=== PATIENT | female | born 1970 | race Caucasian/White ===

== ENCOUNTER 2017-07-05 07:17 | Emergency (ER) | payer BC ==
[2017-07-05 07:23] VITALS: BP 159/85; PULSE 77; RESP 16; TEMP 97.8
[2017-07-05] MEDS ORDERED: methylPREDNISolone SOD SUCCI 125 MG/2 ML VIAL IM ONE (07:40)
--- NOTE | 2017-07-05 07:46 | ED ---
General Adult HPI - General Chief complaint: Allergic Reaction Stated complaint: Facial Swelling Time Seen by Provider: 07/05/17 07:30 Source: patient, RN notes reviewed Mode of arrival: ambulatory Limitations: no limitations - History of Present Illness Initial comments: Patient is a pleasant 46-year-old female presenting to the emergency department with upper facial swelling. Onset was yesterday and somewhat worse today. Patient was exposed to poison cesilia around a week ago. Patient is finishing up steroid Dosepak for this as well as taking Claritin and Prilosec otc. Patient also has noticed somewhat of a diffuse rash, more on the right leg. Rash is somewhat burning. No difficulty in breathing. No lip or tongue or throat swelling. - Related Data Previous Rx's Medication Instructions Recorded Cephalexin [Keflex] 500 mg PO QID #40 cap 07/05/17 Allergies Allergy/AdvReac Type Severity Reaction Status Date / Time No Known Allergies Allergy Verified 07/05/17 07:23 Review of Systems ROS Statement: Those systems with pertinent positive or pertinent negative responses have been documented in the HPI. ROS Other: All systems not noted in ROS Statement are negative. Constitutional: Denies: fever Eyes: Denies: eye pain ENT: Denies: ear pain Respiratory: Denies: cough, dyspnea Cardiovascular: Denies: chest pain Endocrine: Denies: fatigue Gastrointestinal: Denies: abdominal pain Genitourinary: Denies: dysuria Musculoskeletal: Denies: back pain Skin: Reports: rash Neurological: Denies: headache Past Medical History Additional Past Medical History / Comment(s): uterine fibroids History of Any Multi-Drug Resistant Organisms: None Reported Additional Past Surgical History / Comment(s): mammoplasty Past Psychological History: No Psychological Hx Reported Smoking Status: Never smoker Past Alcohol Use History: Rare Past Drug Use History: None Reported General Exam Limitations: no limitations General appearance: alert, in no apparent distress Head exam: Present: atraumatic Eye exam: Present: PERRL, other (Mild angioedema of the periorbital region. Not confluent.) ENT exam: Present: normal oropharynx Neck exam: Present: normal inspection Respiratory exam: Present: normal lung sounds bilaterally Cardiovascular Exam: Present: regular rate, normal rhythm GI/Abdominal exam: Present: soft. Absent: tenderness Extremities exam: Present: normal inspection Neurological exam: Present: alert Psychiatric exam: Present: normal affect, normal mood Skin exam: Present: other (Healing area of skin breakdown right wrist were patient attributes previous poison cesilia. Patient does have mild patchy confluence erythematous rash mostly on the lower back and right thigh. There is some mild warmth to the right thigh. Erythema is light.) Course Vital Signs 07/05/17 07:20 Temperature 97.8 F Pulse Rate 77 Respiratory 16 Rate Blood Pressure 159/85 O2 Sat by Pulse 100 Oximetry Medical Decision Making - Medical Decision Making Patient is concerned regarding possible ALLERGIC reaction from medications. Any medications could potentially cause the symptoms. Patient is advised to avoid all of them. Patient is offered a shot of Solu-Medrol and advised to take only Benadryl if needed. Patient is concerned of possible cellulitis of the right leg. Although this does not look like a typical cellulitis could be an early cellulitis and patient is offered Keflex for this. Patient is advised to return if symptoms worsen. Disposition Clinical Impression: Allergic reaction Disposition: HOME SELF-CARE Condition: Stable Instructions: Allergies (ED) Additional Instructions: Please stop all current medications. [id number] Benadryl as needed. Return for increased swelling, swelling of the lips or tongue or throat, difficulty breathing, worsening symptoms, worsening rash or other concerns. Please follow-up with primary care physician in the next day or 2 for recheck. Prescriptions: Cephalexin [Keflex] 500 mg PO QID #40 cap Is patient prescribed a controlled substance at d/c from ED?: No Referrals: Uche Harrington DO [STAFF PHYSICIAN] - 1-2 days Time of Disposition: 07:46
== END 2017-07-05 08:16 | disposition home or self-care (01) ==
LOC: EC 07:17
DX: T78.40XA Allergy, unspecified, initial encounter (principal)
CPT/HCPCS: 99283; 96372; J2930

== ENCOUNTER 2018-05-03 23:13 | Emergency (ER) | payer BC ==
[2018-05-03 23:23] VITALS: RESP 18; TEMP 98.2
--- NOTE | 2018-05-04 01:03 | XR ---
ADDENDUM - Added by Ashvin Pacheco MD on 05/04/2018 1:04 AM (-07:00) The bones of the foot are intact. EXAM: XR Left Foot Complete, 3 or More Views CLINICAL HISTORY: ITS.REASON XR Reason: Pain TECHNIQUE: Frontal, lateral and oblique views of the left foot. COMPARISON: No relevant prior studies available. FINDINGS: Displaced fracture at the medial malleolus. The distal fracture fragment is considerably displaced from the remainder of the bone, and as well, there is joint space widening between the fragment and the talus, consistent with ligamentous injury. Significant soft tissue swelling throughout the ankle joint and the distal leg. Oblique, intra-articular, displaced fracture of the distal fibula, which maintains its relationship with the talus. IMPRESSION: Medial and lateral malleolar fractures and soft tissue injuries as described.
--- NOTE | 2018-05-04 01:05 | XR ---
EXAM: XR Left Ankle Complete, 3 or More Views CLINICAL HISTORY: ITS.REASON XR Reason: Pain TECHNIQUE: Frontal, lateral and oblique views of the left ankle. COMPARISON: No relevant prior studies available. FINDINGS: Displaced fracture at the medial malleolus. The distal fracture fragment is considerably displaced from the remainder of the bone, and as well, there is joint space widening between the fragment and the talus, consistent with ligamentous injury. Significant soft tissue swelling throughout the ankle joint and the distal leg. Oblique, intra-articular, displaced fracture of the distal fibula, which maintains its relationship with the talus. IMPRESSION: Medial and lateral malleolar fractures and soft tissue injuries as described.
[2018-05-04 01:28] VITALS: BP 123/78; PULSE 85
--- NOTE | 2018-05-04 01:30 | ED ---
Lower Extremity Injury HPI - General Chief Complaint: Extremity Injury, Lower Stated Complaint: Fall Time Seen by Provider: 05/03/18 23:34 Source: EMS Mode of arrival: EMS Limitations: no limitations - History of Present Illness Initial Comments: 47 year-old female patient presents to the emergency department today for evaluation of left ankle pain. Patient states that around 10 PM she was walking when she slipped on the ice and fell injuring the ankle. Patient states she has been unable to bear weight on the foot. She denies hitting her head or losing consciousness. Denies any other injuries. Denies any previous injury to the ankle. Denies taking any medication for her symptoms. Patient denies any headache, neck pain, back pain, chest pain, shortness of breath, dizziness, weakness, abdominal pain, nausea, vomiting, or difficulties with bowel movements or urination. Patient was given 15 mg of IV Toradol in the ambulance, states this did improve her pain. - Related Data Previous Rx's Medication Instructions Recorded Cephalexin [Keflex] 500 mg PO QID #40 cap 07/05/17 Hydrocodone/Acetaminophen [[place] 1 tab PO Q4HR PRN 3 Days #18 tab 05/04/18 5-325] Allergies Allergy/AdvReac Type Severity Reaction Status Date / Time No Known Allergies Allergy Verified 05/03/18 23:23 Review of Systems ROS Statement: Those systems with pertinent positive or pertinent negative responses have been documented in the HPI. ROS Other: All systems not noted in ROS Statement are negative. Past Medical History Additional Past Medical History / Comment(s): uterine fibroids History of Any Multi-Drug Resistant Organisms: None Reported Additional Past Surgical History / Comment(s): mammoplasty Past Psychological History: No Psychological Hx Reported Smoking Status: Never smoker Past Alcohol Use History: Rare Past Drug Use History: None Reported General Exam Limitations: no limitations General appearance: alert, in no apparent distress, other (Physical well- developed, well-nourished adult female patient in no acute distress. Vital signs upon presentation are temperature 98.2F, pulse 91, respirations 18, blood pressure 122/99, pulse ox 97% on room air.) Eye exam: Present: normal appearance, PERRL, EOMI. Absent: scleral icterus, conjunctival injection, periorbital swelling ENT exam: Present: normal exam, normal oropharynx, mucous membranes moist Neck exam: Present: normal inspection, full ROM, other (Nontender, no step-off, no deformity to firm midline palpation of the posterior cervical spine. Full range of motion without pain or limitation.). Absent: tenderness, meningismus, lymphadenopathy Respiratory exam: Present: normal lung sounds bilaterally. Absent: respiratory distress, wheezes, rales, rhonchi, stridor Cardiovascular Exam: Present: regular rate, normal rhythm, normal heart sounds. Absent: systolic murmur, diastolic murmur, rubs, gallop, clicks GI/Abdominal exam: Present: soft, normal bowel sounds. Absent: distended, tenderness, guarding, rebound, rigid Extremities exam: Present: tenderness (Tenderness to the medial and lateral malleolus on the left ankle), normal capillary refill, other (Patient has significant soft tissue swelling noted to the left ankle. Skin is otherwise pink, warm, dry. Cap refills less than 3 seconds. Pedal and posttibial pulses 2+. No proximal tib-fib tenderness.). Absent: normal inspection, full ROM (Decreased range of motion to the left ankle), pedal edema, joint swelling, calf tenderness Back exam: Present: normal inspection, other (Nontender, no step-off, no deformity to firm midline palpation of the thoracic and lumbar vertebrae. Full range of motion without pain or limitation.). Absent: vertebral tenderness Neurological exam: Present: alert, oriented X3, CN II-XII intact Course Vital Signs 05/03/18 05/04/18 23:19 01:27 Temperature 98.2 F Pulse Rate 91 85 Respiratory 18 18 Rate Blood Pressure 122/99 123/78 O2 Sat by Pulse 97 99 Oximetry Medical Decision Making - Medical Decision Making 47 old female patient presents to the emergency department today for evaluation of left ankle pain and swelling after a slip and fall accident. Physical examination did reveal significant soft tissue swelling to the left ankle, medial and lateral malleolus tenderness. Good neurovascular status. X-rays did reveal a bimalleolar fracture of the left ankle with possible ligamentous injury exhibited by widening of the ankle mortise. Patient was placed in a splint as documented. Patient was offered pain medication multiple times and refused. She will be discharged home with instructions to remain nonweightbearing and to leave the splint in place until follow-up with orthopedics. She'll be given prescription for pain medication. She is instructed regarding rest, ice, elevation. She is instructed follow up with orthopedics for recheck as soon as possible. Return parameters were discussed in detail. She verbalizes understanding and agrees with this plan. - Radiology Data Radiology results: report reviewed, image reviewed 3 views of the left foot are obtained. Report was reviewed in its entirety. Impression by Dr. Pacheco shows medial and lateral malleoli fractures and soft tissue injuries as described. 3 views of the left ankle are obtained. Report was reviewed in its entirety. Impression by Dr. Pacheco shows medial and lateral malleoli fractures and soft tissue injuries as described. Disposition Clinical Impression: Bimalleolar fracture of left ankle Disposition: HOME SELF-CARE Condition: Good Instructions (If sedation given, give patient instructions): Ankle Fracture (ED), Splint Care (ED) Additional Instructions: Remain nonweightbearing to the left leg until further instruction from orthopedics. Follow-up with orthopedics for recheck as soon as possible. Return to the emergency department immediately for any new, worsening, or concerning symptoms. Prescriptions: Hydrocodone/Acetaminophen [[place] 5-325] 1 tab PO Q4HR PRN 3 Days #18 tab PRN Reason: Pain Is patient prescribed a controlled substance at d/c from ED?: Yes When asked, does pt state using other controlled substances?: No If prescribed controlled substance>3 days was MAPS reviewed?: Prescribed <3 Days If opioid is for acute pain is fill amount 7 days or less?: No If Rx opioid, was Start Talking consent form obtained?: Yes Referrals: Thelma Vasquez MD [Primary Care Provider] - 1-2 days Carlos Roth DO [Doctor of Osteopathic Medicine] - 1-2 days Time of Disposition: 01:29
== END 2018-05-04 01:39 | disposition home or self-care (01) ==
LOC: EC 23:13
DX: S82.842A Displaced bimalleolar fracture of left lower leg, initial encounter for closed fracture (principal); W00.0XXA Fall on same level due to ice and snow, initial encounter; Y93.01 Activity, walking, marching and hiking; Y92.89 Other specified places as the place of occurrence of the external cause
CPT/HCPCS: 29515; 99283